=== PATIENT | female | born 1940 | race Caucasian/White ===

== ENCOUNTER 2018-03-03 15:00 | Emergency (ER) | payer MEDICARE, BC ==
[~2018-03-03] VITALS: Ht 160 cm; Wt 63.6 kg
[~2018-03-03 15:00] MED LIST: ASCORBIC ACID500 MG PO; ASPIRIN EC81 M1 PO; CHLORTHALIDONE25 MG PO; DILAUDID2 MG PO; K-DUR20 MEQ PO; MAGNESIUM GLUC550 MG PO; OMEPRAZOLE20 M1 PO; OS-CAL500 MG PO; PREMARIN1.25 MG PO; PRINIVIL20 MG PO; VITAMIN A10000 UNIT PO; VITAMIN B-150 MG PO; VITAMIN E100 UNIT PO; ZANAFLEX4 MG PO
[2018-03-03 15:01] VITALS: Ht 160 cm; Wt 63.6 kg
[2018-03-03 15:45] LABS: BASOPHILS 0.3 % (0-2); EOSINOPHILS 0.5 % (0-7); HEMATOCRIT 33.2 % (36.0-48.0); HEMOGLOBIN 11.2 g/dL (12-16); IMMATURE GRANULOCYTES 0.2 % (0-5); MCH 29.3 pg (26.0-34.0); MCHC 33.7 g/dL (31.0-37.0); MCV 86.9 fL (80.0-100.0); MEAN PLATELET VOLUME 9.3 fL (7.4-10.4); MONOCYTES 7.2 % (2-11); NEUTROPHILS 66.8 % (40-80); PLATELET COUNT 224 10x3/uL (130-400); RBC 3.82 10x6/uL (4.00-5.40); RDW 12.8 % (11.5-14.5); WBC 6.3 10x3/uL (4.8-10.8)
[2018-03-03 15:59] LABS: ALBUMIN 2.9 g/dL (3.4-5.0); ALKALINE PHOSPHATASE 69 U/L (46-116); ALT (SGPT) 18 U/L (10-68); BILIRUBIN - TOTAL 0.17 mg/dL (0.2-1.3); CALC OSMOLALITY 272 mosm/kg (275-300); CALCIUM 8.9 mg/dL (8.5-10.1); CARBON DIOXIDE 29.2 mmol/L (21.0-32.0); CHLORIDE - SERUM 100 mmol/L (98-107); CREATININE - SERUM 0.7 mg/dL (0.6-1.3); GLUCOSE 115 mg/dL (74-106); POTASSIUM - SERUM 3.1 mmol/L (3.5-5.1); PROTEIN - SERUM 6.4 g/dL (6.4-8.2); SODIUM 136 mmol/L (136-145); UREA NITROGEN 13 mg/dL (7-18); eGFR NON AFRICAN AMERICAN 86 mL/min (90-120)
[2018-03-03 16:09] LABS: CKMB 1.3 U/L (0.0-3.6); CREATINE KINASE 89 UL (21-215); PRO BNP 227 pg/mL (0-450)
[2018-03-03 16:12] LABS: TROPONIN-I < 0.017 ng/mL (0.000-0.060)
[2018-03-03 17:12] LABS: APPEARANCE CLEAR (CLEAR); BILIRUBIN NEGATIVE (NEGATIVE); COLOR YELLOW (YELLOW); GLUCOSE NEGATIVE (NEGATIVE); KETONE NEGATIVE (NEGATIVE); NITRITE NEGATIVE (NEGATIVE); PROTEIN NEGATIVE (NEGATIVE); UROBILINOGEN NORMAL (NORMAL)
[2018-03-03 18:32] VITALS: BP 142/65
== END 2018-03-03 17:49 | disposition home or self-care (01) ==
LOC: D.ER 15:00
PROVIDERS: Family Medicine
DX: E86.0 Dehydration (principal); E87.6 Hypokalemia; R42 Dizziness and giddiness

== ENCOUNTER → 2019-03-27 10:40 | Outpatient (CLI) | payer MEDICARE, BC ==
[2018-03-03 15:01] VITALS: BMI 24.8
== END | disposition home or self-care (01) ==
LOC: D.CT 10:30
PROVIDERS: ATTEND Family Medicine
DX: R59.9 Enlarged lymph nodes, unspecified (principal)